=== PATIENT | female | born 1995 | race Caucasian/White ===

== ENCOUNTER → 2018-10-09 13:07 | Outpatient (CLI) | payer OTHER, MEDICAID, SELFPAY ==
--- NOTE | 2018-10-09 13:09 | DI.US.S_ITS ---
PROCEDURE: US OB <= 14 WEEKS FETUS INDICATIONS: DATES OUTSIDE/PRIOR DATING DATA: Last menstrual period (LMP): 07/30/18. LMP-based estimated date of delivery (ALFONSO): 05/06/19, assuming viable gestation. First dating scan (date and location): This study, 10/09/18. Estimated date of delivery (ALFONSO) from first dating scan: demise. TECHNIQUE: Real-time scanning was performed of the fetus and maternal pelvic organs, with image documentation. Endovaginal scanning was also performed to better visualize the fetus and maternal ovaries. COMPARISON: None. FINDINGS: Embryo: The gestational sac is flaccid, the pole measures 7 mm which correlates with a gestational age of 6 weeks 4 days, and no cardiac activity was observed. Measurement variability in dating: +/- 4 weeks by LMP, +/- 7 days by mean sac diameter (use before 6 weeks gestation if crown-rump length not able to be measured), +/- 5 days by crown-rump length (up to 8 weeks 6 days gestation), +/- 7 days by crown-rump length (up to 13 weeks 6 days gestation). Maternal organs: Ovaries normal on the right and not seen on the left due to bowel gas. Limited images through the kidneys demonstrate no hydronephrosis. IMPRESSION: The estimated gestational age based on the pole is 6 weeks 3 days-6 weeks 4 days, and the pole measures 7 mm in dimension. No cardiac activity was identified. The gestational sac is irregular, and demise appears present. Dictated by: Danie Zambrano M.D. on 10/09/2018 at 14:08 Approved by: Danie Zambrano M.D. on 10/09/2018 at 14:12
== END ==
PROVIDERS: Visit Provider Family Medicine
DX: O02.1 Missed abortion (principal)
CPT/HCPCS: 76801; 76817

== ENCOUNTER → 2018-10-10 12:51 | Outpatient (CLI) | payer OTHER, MEDICAID, SELFPAY ==
[2018-10-10 14:47] LABS: HCG Quantitative /Beta subunit 30317 mIU/mL
== END ==
PROVIDERS: Specialist; Visit Provider Obstetrics & Gynecology
DX: O36.80X0 Pregnancy with inconclusive fetal viability, not applicable or unspecified (principal)
CPT/HCPCS: 36415; 84702

== ENCOUNTER → 2018-10-12 09:35 | Outpatient (CLI) | payer OTHER, MEDICAID, SELFPAY ==
[2018-10-12 11:23] LABS: HCG Quantitative /Beta subunit 30544 mIU/mL
== END ==
PROVIDERS: Visit Provider Family Medicine
DX: O36.80X0 Pregnancy with inconclusive fetal viability, not applicable or unspecified (principal)
CPT/HCPCS: 36415; 84702

== ENCOUNTER → 2018-10-29 15:15 | Outpatient (CLI) | payer OTHER, MEDICAID, SELFPAY ==
[2018-10-29 16:58] LABS: HCG Quantitative /Beta subunit 72.14 mIU/mL
== END ==
PROVIDERS: Visit Provider Family Medicine
DX: O03.9 Complete or unspecified spontaneous abortion without complication (principal)
CPT/HCPCS: 36415; 84702

== ENCOUNTER → 2018-11-12 11:40 | Outpatient (CLI) | payer OTHER, MEDICAID, SELFPAY ==
[2018-11-12 13:03] LABS: HCG Quantitative /Beta subunit 5.46 mIU/mL
== END ==
PROVIDERS: Visit Provider Family Medicine
DX: O36.80X0 Pregnancy with inconclusive fetal viability, not applicable or unspecified (principal)
CPT/HCPCS: 36415; 84702

== ENCOUNTER → 2018-12-28 10:08 | Outpatient (CLI) | payer OTHER, MEDICAID, SELFPAY ==
--- NOTE | 2018-12-28 10:09 | DI.US.S_ITS ---
PROCEDURE: US OB <= 14 WEEKS FETUS INDICATIONS: INITIAL DATING OUTSIDE/PRIOR DATING DATA: Last menstrual period (LMP): 10/31/2018. LMP-based estimated date of delivery (ALFONSO): 08/07/2019. First dating scan (date and location): 12/28/2018. Estimated date of delivery (ALFONSO) from first dating scan: 08/06/2019. TECHNIQUE: Real-time scanning was performed of the fetus and maternal pelvic organs, with image documentation. COMPARISON: [facility], , OB <= 14 WEEKS FETUS, 10/09/2018, 13:16. FINDINGS: Embryo: There is a single living intrauterine gestation with an estimated sonographic gestational age of approximately 8 weeks and 4 days by crown-rump length and 9 weeks and 0 days by crown lump length+ gestational sac. The mean sac diameter measured 3.9 cm, correlating with 9 weeks and 2 days. The crown lump length measured 2.0 cm, correlating with approximately 8 weeks and 4 days. heart rate measures approximately 173 beats per minute. A normal yolk sac is visualized. Measurement variability in dating: +/- 4 weeks by LMP, +/- 7 days by mean sac diameter (use before 6 weeks gestation if crown-rump length not able to be measured), +/- 5 days by crown-rump length (up to 8 weeks 6 days gestation), +/- 7 days by crown-rump length (up to 13 weeks 6 days gestation). Maternal organs: Ovaries are normal in appearance bilaterally. Limited images through the kidneys demonstrate no hydronephrosis. IMPRESSION: Single living intrauterine gestation with an estimated sonographic gestational age of approximately 9 weeks and 0 days. Recommend followup imaging with routine second trimester anatomic scanning survey. Dictated by: Josh Hendrix M.D. on 12/28/2018 at 17:10 Approved by: Josh Hendrix M.D. on 12/28/2018 at 17:15
[2018-12-28 11:45] LABS: Add Manual Diff / Slide Review NO; Basophils Absolute Auto 0 /uL (0-100); Basophils Percent Auto 0.4 % (0-2); Eosinophils Absolute Auto 100 /uL (0-450); Eosinophils Percent Auto 2.4 % (2-4); Hematocrit 37.2 % (36-46); Lymphocytes Absolute Auto 1500 /uL (1100-4500); Lymphocytes Percent Auto 25.7 % (25-40); Mean Corpuscular Hemoglobin 33.2 PG (26-34); Monocytes Absolute Auto 500 /uL (0-900); Monocytes Percent Auto 8.4 % (3-14); Neutrophils Absolute Auto 3800 /uL (1500-7000); Neutrophils Percent Auto 63.1 % (50-75); Platelet Count 269 X10^3/uL (150-400); Red Blood Cell Count 3.92 X10^6/uL (4.0-5.2); Red Cell Distribution Width 13.7 % (11.6-14.8)
[2018-12-28 11:48] LABS: Appearance Urine UA SL CLOUDY; Bilirubin Urine UA NEGATIVE (NEGATIVE); Color Urine UA YELLOW; Glucose Urine UA NEGATIVE (Negative); Ketones Urine UA NEGATIVE (NEGATIVE); Leukocyte Esterase Urine UA NEGATIVE (NEGATIVE); Nitrite Urine UA NEGATIVE (Negative); Occult Blood Urine UA NEGATIVE (Negative); Protein Urine UA NEGATIVE (Negative); Urobilinogen Urine UA 0.2 E.U./dL (0.2)
[2018-12-28 12:23] LABS: Hepatitis B Surface Antigen NEGATIVE s/c (NEGATIVE); Rubella Antibody IgG 23.8 IU/mL (>15)
[2018-12-28 12:40] LABS: HIV 1 and 2 Antibody NEGATIVE (NEGATIVE); Hep C Virus Ab w/Reflex Quant NEGATIVE s/c (NEGATIVE)
[2018-12-30 14:26] LABS: RPR Screen Nonreactive (Nonreactive)
== END ==
PROVIDERS: Visit Provider Family Medicine
DX: Z34.01 Encounter for supervision of normal first pregnancy, first trimester (principal); Z3A.09 9 weeks gestation of pregnancy
CPT/HCPCS: 36415; 76801; 80055; 81003; 86703; 86787; 86803; 86850; 86900; 86901; 87077; 87086

== ENCOUNTER → 2019-03-22 14:41 | Outpatient (CLI) | payer OTHER, MEDICAID, SELFPAY ==
--- NOTE | 2019-03-22 14:43 | DI.US.S_ITS ---
PROCEDURE: US OB >= 14 WEEKS FETUS INDICATIONS: ANATOMY OUTSIDE/PRIOR DATING DATA: Last menstrual period (LMP): 10/31/18. LMP-based estimated date of delivery (ALFONSO): 08/07/19. First dating scan (date and location): 12/28/18, [facility]. Estimated date of delivery (ALFONSO) from first dating scan: 08/06/19. TECHNIQUE: Real-time scanning was performed of the fetus, with image documentation and biometric measurements. Endovaginal scanning: Not performed COMPARISON: None. FINDINGS: General: A single living intrauterine gestation is present. Presentation: Vertex. Placenta: Placental position is anterior, without previa. Lower placental edge 2 cm or less from internal cervical os qualifies as low lying placenta. Amniotic fluid index: 18.5 cm, normal range is 5-24 cm. heart rate: 150 beats per minute. Maternal cervical canal: 3.6 cm long. Normal lower limit is 2.5 cm. biometrics: Biparietal diameter: 5.6 cm, 23 weeks, zero days Head circumference: 20.8 cm, 22 weeks, 6 days Abdominal circumference: 15.3 cm, 20 weeks, 4 days Femur length: 3.4 cm, 20 weeks, 5 days Estimated gestational age from initial scan: 20 weeks, 3 days Composite gestational age from present scan: 21 weeks, 6 days Estimated weight and percentile: 384 g, 71st percentile Measurement variability for biometric dating: +/- 7 days from 14 weeks to 15 weeks 6 days gestation, +/- 10 days from 16 weeks to 21 weeks 6 days gestation, +/- 2 weeks from 22 weeks to 27 weeks 6 days gestation, +/- 3 weeks for 28 weeks gestation or later. weight reference: 4500 g or EFW >90/95% is considered macrosomia or large for gestational age. EFW <10% is small for gestational age. EFW 5% or less is considered intra-uterine growth restriction. Anatomic survey: Neuro: The ventricles are markedly dilated measuring up to 16 mm in diameter. The cisterna magna measures 1.8 cm in diameter. The cerebellar hemispheres are not definitely visualized. Face: Nose and lips have a normal appearance. The facial profile is not well characterized. Spine: No evidence for spina bifida. Heart: 4-chambered heart is present, with normal ventricular outflow tracts. Diaphragm: Diaphragm is intact. Stomach: Left-sided stomach is present. Kidneys: No hydronephrosis. Normal is less than 5 mm in 2nd trimester, less than 7 mm in 3rd trimester. Cord: 3-vessel cord has orthotopic insertion. Bladder: Normal in size. Extremities: All 4 extremities identified. IMPRESSION: 1. 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 2. No other anatomic abnormalities. These findings were discussed with Dr. Hoffman at the time of the study and with the patient at the time of the study by the radiologist. Dictated by: Itzel Hernandes M.D. on 03/22/2019 at 15:57 Approved by: Itzel Hernandes M.D. on 03/22/2019 at 16:01
== END ==
PROVIDERS: PCP Family Medicine; Visit Provider Family Medicine
DX: Z36.89 Encounter for other specified antenatal screening (principal); Z3A.21 21 weeks gestation of pregnancy
CPT/HCPCS: 76811

== ENCOUNTER → 2019-10-11 15:54 | Outpatient (CLI) | payer OTHER, MEDICAID, SELFPAY ==
--- NOTE | 2019-10-11 15:55 | DI.RAD.S_ITS ---
PROCEDURE: XR CHEST 2V INDICATIONS: cough TECHNIQUE: 2 views of the chest were acquired. COMPARISON: None. FINDINGS: Surgical changes and devices: None. Lungs and pleura: Lungs are clear. No pleural effusions or pneumothorax. Mediastinum: Mediastinal contours are normal. Heart size is normal. Bones and chest wall: No suspicious bony abnormalities. Soft tissues appear unremarkable. IMPRESSION: Normal for age, source of current cough symptoms is not seen. Dictated by: Danie Zambrano M.D. on 10/11/2019 at 16:22 Approved by: Danie Zambrano M.D. on 10/11/2019 at 16:29
== END ==
PROVIDERS: Family Provider Family Medicine; PCP Family Medicine; Visit Provider Nurse Practitioner
DX: R05 Cough (principal)
CPT/HCPCS: 71046

== ENCOUNTER → 2020-05-24 10:38 | Outpatient (CLI) | payer OTHER, MEDICAID, SELFPAY ==
[2020-05-27 12:12] LABS: COVID19 Sendout Not Detected (Not Detected)
== END ==
PROVIDERS: Family Provider Family Medicine; PCP Family Medicine; Visit Provider Physician Assistant
DX: R05 Cough (principal)
CPT/HCPCS: 87635

== ENCOUNTER → 2020-05-24 10:51 | Outpatient (CLI) | payer OTHER, MEDICAID, SELFPAY ==
--- NOTE | 2020-05-24 10:53 | DI.RAD.S_ITS ---
PROCEDURE: XR CHEST 2V INDICATIONS: shortness of breath TECHNIQUE: 2 views of the chest were acquired. COMPARISON: [facility], , XR CHEST 2V, 10/11/2019, 15:52. FINDINGS: Surgical changes and devices: None. Lungs and pleura: Lungs are clear. No pleural effusions or pneumothorax. Mediastinum: Mediastinal contours are normal. Heart size is normal. Bones and chest wall: No suspicious bony abnormalities. Soft tissues appear unremarkable. IMPRESSION: Negative chest. No acute cardiopulmonary process is evident. Dictated by: Estiven Torres M.D. on 05/24/2020 at 10:06 Approved by: Estiven Torres M.D. on 05/24/2020 at 10:07
== END ==
PROVIDERS: Family Provider Family Medicine; PCP Family Medicine; Referring Provider Physician Assistant; Visit Provider Physician Assistant
DX: R06.02 Shortness of breath (principal); R05 Cough
CPT/HCPCS: 71046; 87635

== ENCOUNTER 2020-11-10 06:24 | Emergency (ER) | payer OTHER, MEDICAID, SELFPAY ==
[2020-11-10 06:43] VITALS: BP 141/83; PULSE 79; RESP 20; TEMP 36.7; O2SAT 92; BMI 27.4
--- NOTE | 2020-11-10 06:48 | DI.RAD.S_ITS ---
PROCEDURE: XR CHEST 2V INDICATIONS: shortness of breath TECHNIQUE: 2 views of the chest were acquired. COMPARISON: [facility], CR, XR CHEST 2V, 05/24/2020, 10:44. FINDINGS: Surgical changes and devices: None. Mild focal opacity seen in the left upper lobe No pleural effusions or pneumothorax. Mediastinum: Mediastinal contours are normal. Heart size is normal. Bones and chest wall: No suspicious bony abnormalities. Soft tissues appear unremarkable. IMPRESSION: Left upper lobe focal opacity suggestive of early pneumonia. Dictated by: Kristopher Portillo M.D. on 11/10/2020 at 8:38 Approved by: Kristopher Portillo M.D. on 11/10/2020 at 8:39
[2020-11-10 07:08] LABS: COVID19 -Nasal RAPID Negative (Negative)
--- NOTE | 2020-11-10 07:10 | ED.SOB ---
HPI - SOB/Dyspnea General Chief Complaint: Shortness of Breath/Dyspnea Stated Complaint: thinks she has bronchitis Time Seen by Provider: 11/10/20 07:00 Source: patient Mode of arrival: Ambulatory Limitations: no limitations History of Present Illness HPI Narrative: Patient is a 25-year-old female who has a history of exercise-induced asthma. She says it has been relatively controlled until this year. She has had issues off and on since but over the last week progressively getting worse. She has been using her albuterol inhaler with spacer along with nebulizer without any relief. She says she gets short of breath with exertion she feels like her chest is tight and she cannot take a deep breath. She has a nonproductive cough she denies any fever or chills. She says she just can not quite breath. MD Complaint: shortness of breath Onset (ago): week(s) Context: occurred during exertion Relieving factors: rest Exacerbating factors: exertion Known history of: asthma Associated symptoms: wheezing Related Data Previous Rx's Medication Instructions Recorded triamcinolone acetonide 0.1 % 1 applictn TOP BID #30 gram 08/28/19 topical cream norgestimate 0.25 mg-ethinyl 1 tab PO DAILY #84 tab 09/13/19 estradiol 35 mcg tablet azithromycin 250 mg tablet See Rx Instructions PO .COMPLEX #6 05/24/20 tab fluticasone propionate 220 2 puff INHALATION BID #12 gram 05/29/20 mcg/actuation HFA aerosol inhaler nebulizer and compressor #1 each 05/29/20 albuterol sulfate 90 mcg/actuation 2 puff INHALATION Q4-6H PRN #8.5 07/16/20 aerosol inhaler gram Nebulizer Canister for medication #1 ea 08/28/20 Nebulizer tubing #1 ea 08/28/20 albuterol sulfate 2.5 mg INHALATION Q6H PRN #90 ml 08/28/20 albuterol sulfate 0.63 mg INHALATION QID PRN #75 ml 11/10/20 albuterol sulfate 2 puff INHALATION Q4-6H PRN #8.5 g 11/10/20 doxycycline hyclate 100 mg PO BID #14 cap 11/10/20 prednisone 40 mg PO DAILY #10 tab 11/10/20 Allergies Allergy/AdvReac Type Severity Reaction Status Date / Time diphenhydramine Allergy Severe rash, Verified 11/10/20 06:49 [From Benadryl] anaphylaxis Review of Systems Review of Systems Narrative: GENERAL: Denies chills, fatigue, malaise, fever, sweats, travel HEENT: Denies sinus pain, ear pain, sore throat, difficulty swallowing, neck pain RESPIRATORY: See HPI CARDIOVASCULAR: Denies chest pain, palpitations, orthopnea, edema GASTROINTESTINAL: Denies nausea, vomiting, abdominal pain, diarrhea, constipation, melena. : Denies dysuria, frequency, incontinence, hematuria, urinary retention, flank pain. MUSCULOSKELETAL: Denies weakness, joint pain, or bony pain SKIN: No rash, no erythema, no pruritus NEUROLOGIC: Denies weakness, dizziness, headache, numbness, change in speech, confusion PSYCHIATRIC: No concerning psychosocial issues. 12 point review of systems is negative except for those stated above and HPI Patient History Medical History Mild intermittent asthma Social History marital status: unmarried,single (engaged) lives independently: Yes education level: high school occupational status: unemployed Smoking Status: Never smoker alcohol intake: former substance use type: former substance user (marijuana) Smoking Status: Never smoker Substance Use Type: marijuana Exam Initial Vital Signs Initial Vital Signs: Vital Signs Temperature 98.1 F 11/10/20 06:43 Pulse Rate 79 11/10/20 06:43 Respiratory Rate 20 11/10/20 06:43 Blood Pressure 141/83 H 11/10/20 06:43 Pulse Oximetry 92 11/10/20 06:43 GENERAL: Well-appearing, well-nourished and in no acute distress. HEENT: Head atraumatic,EOMI, pupils reactive, face symmetric, moist mucous membranes CARDIOVASCULAR: Regular rate and rhythm without murmurs, rubs or gallops. RESPIRATORY: Wheezing bilaterally, speaks in full sentences without difficulty ABDOMEN: Soft, nontender. Normoactive bowel sounds all 4 quadrants. No guarding or rebound. EXTREMITIES: Normal range of motion, no clubbing or edema. Neurovascularly intact NEUROLOGICAL: Alert and oriented x4.Normal gait and speech. SKIN: Warm, dry, no laceration, no petechiae, no rashes or lesions. Course Orders Ordered: ED Orders 11/10/20 06:45 COVID19 Stat 11/10/20 06:48 XR chest 2V Stat Measure peak expiratory flow ONCE RT Consult Eval and Treat Now 11/10/20 07:57 EKG-12 Lead Stat 11/10/20 08:05 Complete Blood Count AUTO DIFF Stat Comprehensive Metabolic Panel Stat NT-proBNP (BNP-Adult 18+) Stat Troponin & CK Cardiac Panel Stat Discontinued Medications Albuterol (Albuterol 2.5 Mg/3 Ml Neb (Adult)) 2.5 mg INH NOW ONE Stop: 11/10/20 07:43 Last Admin: 11/10/20 07:53 Dose: 2.5 mg Documented by: GRICELDA Albuterol (Albuterol 2.5 Mg/3 Ml Neb (Adult)) 2.5 mg INH NOW ONE Stop: 11/10/20 09:04 Last Admin: 11/10/20 09:06 Dose: 2.5 mg Documented by: GRICELDA Albuterol/Ipratropium (Albuterol/Ipratropium 3 Ml Ampul) 3 ml INH NOW ONE Stop: 11/10/20 07:11 Last Admin: 11/10/20 07:16 Dose: 3 ml Documented by: GRICELDA Vital Signs Vital signs: Vital Signs - 8 hr 11/10/20 06:43 11/10/20 07:20 11/10/20 07:57 Temperature 98.1 F Pulse Rate 79 95 H 88 Respiratory Rate 20 20 16 Blood Pressure 141/83 H Pulse Oximetry 92 96 97 11/10/20 09:17 11/10/20 09:28 Temperature Pulse Rate 70 Respiratory Rate 16 Blood Pressure 141/82 H Pulse Oximetry 96 96 MDM - SOB/Dyspnea Lab Data Attestation: I reviewed the patient's lab results. Result diagrams: 11/10/20 08:05 11/10/20 08:05 Labs: Lab Results 11/10/20 11/10/20 11/10/20 Range/Units 06:45 08:05 08:05 WBC 11.1 H (4.5-11.0) X10^3/uL RBC 4.28 (4.0-5.2) X10^6/uL Hgb 13.7 (12.0-16.0) g/dL Hct 39.9 (36-46) % MCV 93.2 (80-100) fL MCH 32.1 (26-34) PG MCHC 34.5 (30-36) % RDW 14.1 (11.6-14.8) % Plt Count 292 (150-400) X10^3/uL Neut % (Auto) 58.1 (50-75) % Lymph % (Auto) 15.0 L (25-40) % [place] % (Auto) 5.3 (3-14) % Eos % (Auto) 20.9 H (2-4) % Baso % (Auto) 0.7 (0-2) % Neut # (Auto) 6400 (7066-2862) /uL Lymph # (Auto) 1700 (8540-4155) /uL [place] # (Auto) 600 (0-900) /uL Eos # (Auto) 2300 H (0-450) /uL Baso # (Auto) 100 (0-100) /uL Sodium 139 (137-145) mmol/L Potassium 3.7 (3.4-5.1) mmol/L Chloride 108 H (98-107) mmol/L Carbon Dioxide 22 (22-32) mmol/L BUN 7 (7-17) mg/dL Creatinine 0.65 (0.52-1.04) mg/dL Estimated GFR > 60.0 (>60) mL/min BUN/Creatinine Ratio 10.8 (6-22) Glucose 106 H (70-100) mg/dL Lactate Calcium 9.6 (8.4-10.2) mg/dL Total Bilirubin 0.8 (0.2-1.3) mg/dL AST 20 (14-36) IU/L ALT 11 (<35) IU/L Alkaline Phosphatase 73 (38-126) U/L Total Creatine Kinase (30-135) U/L CK-MB (CK-2) CK-MB (CK-2) Rel Index Troponin I (0.01-0.034) ng/mL NT-Pro-B Natriuret Pep (<125) pg/mL Total Protein 7.6 (6.3-8.2) g/dL Albumin 4.3 (3.5-5.0) g/dL Globulin 3.3 (1.7-4.1) g/dL Albumin/Globulin Ratio 1.3 (1.0-2.8) COVID-19 PCR Negative (Negative) 11/10/20 11/10/20 11/10/20 Range/Units 08:05 08:05 08:05 WBC (4.5-11.0) X10^3/uL RBC (4.0-5.2) X10^6/uL Hgb (12.0-16.0) g/dL Hct (36-46) % MCV (80-100) fL MCH (26-34) PG MCHC (30-36) % RDW (11.6-14.8) % Plt Count (150-400) X10^3/uL Neut % (Auto) (50-75) % Lymph % (Auto) (25-40) % [place] % (Auto) (3-14) % Eos % (Auto) (2-4) % Baso % (Auto) (0-2) % Neut # (Auto) (2030-5649) /uL Lymph # (Auto) (3055-5408) /uL [place] # (Auto) (0-900) /uL Eos # (Auto) (0-450) /uL Baso # (Auto) (0-100) /uL Sodium (137-145) mmol/L Potassium (3.4-5.1) mmol/L Chloride (98-107) mmol/L Carbon Dioxide (22-32) mmol/L BUN (7-17) mg/dL Creatinine (0.52-1.04) mg/dL Estimated GFR (>60) mL/min BUN/Creatinine Ratio (6-22) Glucose (70-100) mg/dL Lactate Cancelled Calcium (8.4-10.2) mg/dL Total Bilirubin (0.2-1.3) mg/dL AST (14-36) IU/L ALT (<35) IU/L Alkaline Phosphatase (38-126) U/L Total Creatine Kinase 54 (30-135) U/L CK-MB (CK-2) TNP CK-MB (CK-2) Rel Index TNP Troponin I < 0.012 (0.01-0.034) ng/mL NT-Pro-B Natriuret Pep 28 (<125) pg/mL Total Protein (6.3-8.2) g/dL Albumin (3.5-5.0) g/dL Globulin (1.7-4.1) g/dL Albumin/Globulin Ratio (1.0-2.8) COVID-19 PCR (Negative) Imaging Data Chest x-ray: Radiologist's Impression: PROCEDURE: XR CHEST 2V INDICATIONS: shortness of breath TECHNIQUE: 2 views of the chest were acquired. COMPARISON: [facility], CR, XR CHEST 2V, 05/24/2020, 10:44. FINDINGS: Surgical changes and devices: None. Mild focal opacity seen in the left upper lobe No pleural effusions or pneumothorax. Mediastinum: Mediastinal contours are normal. Heart size is normal. Bones and chest wall: No suspicious bony abnormalities. Soft tissues appear unremarkable. IMPRESSION: Left upper lobe focal opacity suggestive of early pneumonia. Dictated by: Kristopher Portillo M.D. on 11/10/2020 at 8:38 ECG Data Attestation: I personally reviewed and interpreted this ECG as follows: Prior ECG tracings: not available for review Interpretation: Normal sinus rhythm rate 74 p.r. interval 112 QRS 98 QTC 421 T-wave inversion noted in lead 3 and V2, no ST elevation or depression appreciated MDM Narrative Medical decision making narrative: Patient had no relief after DuoNeb treatment. She was given a 2nd albuterol nebulizer which seemed to help a little bit more. Blood work then ordered chest x-ray revealed left upper lobe pneumonia. sHe overall appears well no signs of sepsis or SIRS criteria. She is started on prednisone albuterol and doxycycline. Discharge Plan Departure Patient Disposition: Home Clinical Impression: Pneumonia Qualifiers: Pneumonia type: due to unspecified organism Laterality: left Lung location: upper lobe of lung Qualified Code(s): J18.9 - Pneumonia, unspecified organism Instructions: Atypical Pneumonia Activity Restrictions/Additional Instructions: *You have been diagnosed with pneumonia *What to do: Rest, increase fluids COVID is negative *Continue to take medications as directed-->[facility] [place] Doxycycline 100 mg twice a day for 7 days Albuterol either inhaler or nebulizer every 4 hours if needed for cough or shortness of breath. Prednisone 40 mg once a day for 5 days start today *Follow up with your primary care provider in 2-3 days *Return to ER if you should have increasing shortness of breath, chest pain fever or any new, worsening or concerning symptoms Prescriptions: New doxycycline hyclate 100 mg capsule 100 mg PO BID Qty: 14 RF: 0 prednisone 20 mg tablet 40 mg PO DAILY Qty: 10 RF: 0 albuterol sulfate 0.63 mg/3 mL solution for nebulization 0.63 mg inhalation QID PRN (Reason: shortness of breath or wheezing) Qty: 75 RF: 0 albuterol sulfate 90 mcg/actuation HFA aerosol inhaler 2 puff inhalation Q4-6H PRN (Reason: shortness of breath or wheezing) Qty: 8.5 RF: 0 No Action norgestimate-ethinyl estradiol [Sprintec (28)] 0.25-35 mg-mcg tablet 1 tab PO DAILY Qty: 84 RF: 3 Flovent HFA 220 mcg/actuation HFA aerosol inhaler 2 puff INHALATION BID Qty: 12 RF: 1 (DME) Portable Nebulizer System Device See Rx Instructions .ROUTE .MEDSUPPLY Qty: 1 RF: 0 azithromycin 250 mg tablet See Rx Instructions PO .COMPLEX Qty: 6 RF: 0 albuterol sulfate 90 mcg/actuation HFA aerosol inhaler 2 puff INHALATION Q4-6H PRN (Reason: shortness of breath or wheezing) Qty: 8.5 RF: 2 albuterol sulfate 2.5 mg /3 mL (0.083 %) solution for nebulization 2.5 mg INHALATION Q6H PRN (Reason: shortness of breath or wheezing) Qty: 90 RF: 0 (DME) Nebulizer tubing Qty: 1 RF: 0 (DME) Nebulizer Canister for medication Qty: 1 RF: 0 triamcinolone acetonide 0.1 % cream 1 applictn TOP BID Qty: 30 RF: 0 Referrals: Tatianna Hoffman DO [Primary Care Provider] -
[2020-11-10] MEDS: ALBUTEROL/IPRATROPIUM 3 ML AMPUL INH (07:16)
[2020-11-10 07:20] VITALS: PULSE 95; RESP 20; O2SAT 96
[2020-11-10] MEDS: ALBUTEROL 2.5 MG/3 ML NEB (ADULT) INH ×2 (07:53→09:06)
[2020-11-10 07:57] VITALS: PULSE 88; RESP 16; O2SAT 97
[2020-11-10 08:27] LABS: Add Manual Diff / Slide Review NO; Basophils Absolute Auto 100 /uL (0-100); Basophils Percent Auto 0.7 % (0-2); Eosinophils Absolute Auto 2300 /uL (0-450); Eosinophils Percent Auto 20.9 % (2-4); Hematocrit 39.9 % (36-46); Hemoglobin 13.7 g/dL (12.0-16.0); Lymphocytes Absolute Auto 1700 /uL (1100-4500); Mean Corpuscular HGB Conc 34.5 % (30-36); Mean Corpuscular Hemoglobin 32.1 PG (26-34); Mean Corpuscular Volume 93.2 fL (80-100); Monocytes Absolute Auto 600 /uL (0-900); Monocytes Percent Auto 5.3 % (3-14); Neutrophils Absolute Auto 6400 /uL (1500-7000); Neutrophils Percent Auto 58.1 % (50-75); Platelet Count 292 X10^3/uL (150-400); Red Blood Cell Count 4.28 X10^6/uL (4.0-5.2); Red Cell Distribution Width 14.1 % (11.6-14.8); White Blood Cell Count 11.1 X10^3/uL (4.5-11.0)
[2020-11-10 08:35] LABS: Creatine Kinase 54 U/L (30-135)
[2020-11-10 08:45] LABS: NT-proBNP (BNP-Adult 18+) 28 pg/mL (<125)
[2020-11-10 08:48] LABS: Troponin I < 0.012 ng/mL (0.01-0.034)
[2020-11-10 08:53] LABS: Alanine Aminotransferase 11 IU/L (<35); Albumin 4.3 g/dL (3.5-5.0); Albumin Globulin Ratio 1.3 (1.0-2.8); Alkaline Phosphatase 73 U/L (38-126); Aspartate Aminotransferase 20 IU/L (14-36); BUN Creatinine Ratio 10.8 (6-22); Bilirubin Total 0.8 mg/dL (0.2-1.3); Blood Urea Nitrogen 7 mg/dL (7-17); Calcium 9.6 mg/dL (8.4-10.2); Carbon Dioxide 22 mmol/L (22-32); Chloride 108 mmol/L (98-107); Estimated Glomerular Filt Rate > 60.0 mL/min (>60); Globulin 3.3 g/dL (1.7-4.1); Glucose 106 mg/dL (70-100); HEMOLYSIS 16 (0-50); Potassium 3.7 mmol/L (3.4-5.1); Sodium 139 mmol/L (137-145); Total Protein 7.6 g/dL (6.3-8.2)
[2020-11-10 09:17] VITALS: RESP 16; O2SAT 96
[2020-11-10 09:28] VITALS: BP 141/82; PULSE 70; O2SAT 96
== END 2020-11-10 09:28 | disposition home or self-care (01) ==
PROVIDERS: Emergency Medicine; Emergency Provider Emergency Medicine; Family Provider Family Medicine; PCP Family Medicine
DX: J18.9 Pneumonia, unspecified organism (principal); R05 Cough; Z20.828 Contact with and (suspected) exposure to other viral communicable diseases
CPT/HCPCS: 36415; 71046; 80053; 82550; 83880; 84484; 85025; 87635; 93005; 94150; 94640; 99282; 99284; J7613

== ENCOUNTER → 2021-01-18 07:43 | Outpatient (CLI) | payer OTHER, MEDICAID, SELFPAY ==
--- NOTE | 2021-01-18 07:45 | DI.RAD.S_ITS ---
PROCEDURE: XR CHEST 2V INDICATIONS: cough, h/o pneumonia, r/o pneumonia TECHNIQUE: 2 views of the chest were acquired. COMPARISON: [facility], CR, XR CHEST 2V, 11/10/2020, 7:16. FINDINGS: Surgical changes and devices: None. Lungs and pleura: Lungs are clear. No pleural effusions or pneumothorax. Mediastinum: Mediastinal contours are normal. Heart size is normal. Bones and chest wall: No suspicious bony abnormalities. Soft tissues appear unremarkable. IMPRESSION: No acute cardiopulmonary pathology. Dictated by: Mitesh Bonner M.D. on 01/18/2021 at 8:18 Approved by: Mitesh Bonner M.D. on 01/18/2021 at 8:18
== END ==
PROVIDERS: Family Provider Family Medicine; PCP Family Medicine; Referring Provider Physician Assistant; Visit Provider Physician Assistant
DX: J40 Bronchitis, not specified as acute or chronic (principal); R05 Cough
CPT/HCPCS: 71046

== ENCOUNTER → 2021-06-16 13:08 | Outpatient (CLI) | payer OTHER, MEDICAID, SELFPAY ==
[2021-06-16 15:30] LABS: HCG Quantitative /Beta subunit 78221 mIU/mL
== END ==
PROVIDERS: Family Provider Family Medicine; PCP Family Medicine; Referring Provider Family Medicine; Visit Provider Family Medicine
DX: Z34.81 Encounter for supervision of other normal pregnancy, first trimester (principal)
CPT/HCPCS: 36415; 84702

== ENCOUNTER → 2021-06-18 12:56 | Outpatient (CLI) | payer OTHER, MEDICAID, SELFPAY ==
[2021-06-18 15:08] LABS: HCG Quantitative /Beta subunit 75821 mIU/mL
== END ==
PROVIDERS: Family Provider Family Medicine; PCP Family Medicine; Referring Provider Family Medicine; Visit Provider Family Medicine
DX: Z34.81 Encounter for supervision of other normal pregnancy, first trimester (principal)
CPT/HCPCS: 36415; 84702

== ENCOUNTER → 2021-06-21 14:58 | Outpatient (CLI) | payer OTHER, MEDICAID, SELFPAY ==
[2021-06-21 16:31] LABS: HCG Quantitative /Beta subunit 71738 mIU/mL
== END ==
PROVIDERS: Family Provider Family Medicine; PCP Family Medicine; Referring Provider Family Medicine; Visit Provider Family Medicine
DX: Z34.90 Encounter for supervision of normal pregnancy, unspecified, unspecified trimester (principal)
CPT/HCPCS: 36415; 84702

== ENCOUNTER → 2021-06-22 09:03 | Outpatient (CLI) | payer OTHER, MEDICAID, SELFPAY ==
--- NOTE | 2021-06-22 09:04 | DI.US.S_ITS ---
PROCEDURE: US OB <= 14 WEEKS FETUS INDICATIONS: DECREASING HUMAN CHORIONIC GONADOTROPIN OUTSIDE/PRIOR DATING DATA: Last menstrual period (LMP): Not known LMP-based estimated date of delivery (ALFONSO): Not applicable First dating scan (date and location): June 22, 2021 Estimated date of delivery (ALFONSO) from first dating scan: January 16, 2022 TECHNIQUE: Real-time scanning was performed of the fetus and maternal pelvic organs, with image documentation. Endovaginal scanning was also performed to better visualize the fetus and maternal ovaries. COMPARISON: None. FINDINGS: Embryo: Single living intrauterine identified. Yolk sac identified. pole identified. [place]-rump length measures 3.3 centimeters corresponding to ultrasound estimated gestational age of 10 weeks 2 days Heart rate: 168 beats per minute Measurement variability in dating: +/- 4 weeks by LMP, +/- 7 days by mean sac diameter (use before 6 weeks gestation if crown-rump length not able to be measured), +/- 5 days by crown-rump length (up to 8 weeks 6 days gestation), +/- 7 days by crown-rump length (up to 13 weeks 6 days gestation). Maternal organs: Right ovary is sonographically normal. Left ovary is not visualized and cannot be evaluated. IMPRESSION: Single living intrauterine with ultrasound estimated gestational age of 10 weeks 2 days corresponding to ultrasound ALFONSO of January 16, 2022. Dictated by: Angie Patterson MD, PhD on 06/22/2021 at 10:00 Approved by: Angie Patterson MD, PhD on 06/22/2021 at 10:08
== END ==
PROVIDERS: Family Provider Family Medicine; PCP Family Medicine; Referring Provider Family Medicine; Visit Provider Family Medicine
DX: Z34.91 Encounter for supervision of normal pregnancy, unspecified, first trimester (principal); Z3A.10 10 weeks gestation of pregnancy
CPT/HCPCS: 76801; 76817

== ENCOUNTER → 2021-07-01 16:41 | Outpatient (CLI) | payer OTHER, MEDICAID, SELFPAY ==
[2021-07-01 17:12] LABS: Add Manual Diff / Slide Review NO; Basophils Absolute Auto 0 /uL (0-100); Basophils Percent Auto 0.7 % (0-2); Eosinophils Absolute Auto 300 /uL (0-450); Eosinophils Percent Auto 5.5 % (2-4); Hematocrit 34.2 % (36-46); Hemoglobin 11.9 g/dL (12.0-16.0); Lymphocytes Absolute Auto 1300 /uL (1100-4500); Lymphocytes Percent Auto 22.7 % (25-40); Mean Corpuscular HGB Conc 34.8 % (30-36); Mean Corpuscular Volume 94.9 fL (80-100); Monocytes Absolute Auto 300 /uL (0-900); Monocytes Percent Auto 6.2 % (3-14); Neutrophils Absolute Auto 3600 /uL (1500-7000); Neutrophils Percent Auto 64.9 % (50-75); Platelet Count 291 X10^3/uL (150-400); Red Blood Cell Count 3.61 X10^6/uL (4.0-5.2); Red Cell Distribution Width 14.6 % (11.6-14.8); White Blood Cell Count 5.6 X10^3/uL (4.5-11.0)
[2021-07-01 17:55] LABS: Appearance Urine UA CLEAR; Bilirubin Urine UA NEGATIVE (NEGATIVE); Color Urine UA YELLOW; Glucose Urine UA NEGATIVE (Negative); Ketones Urine UA NEGATIVE (NEGATIVE); Leukocyte Esterase Urine UA 1+ (NEGATIVE); Nitrite Urine UA NEGATIVE (Negative); Occult Blood Urine UA NEGATIVE (Negative); Protein Urine UA NEGATIVE (Negative); Urobilinogen Urine UA 0.2 E.U./dL (0.2)
[2021-07-01 17:58] LABS: RBC Urine None Seen (0-5/HPF)
[2021-07-01 18:10] LABS: Amorphous Sediment Urine 1+; Bacteria Urine Moderate (10-30); Squamous Epithelial Cell Urine 1-5 /HPF (0-5/HPF); WBC Urine 5-10/HPF (0-5/HPF)
[2021-07-01 18:22] LABS: HIV 1 & 2 Ab/Ag 4th Gen Combo NEGATIVE (NEGATIVE); Hep C Virus Ab w/Reflex Quant NEGATIVE s/c (NEGATIVE); Hepatitis B Surface Antigen NEGATIVE s/c (NEGATIVE); Rubella Antibody IgG 14.3 IU/mL (>15)
[2021-07-02 07:09] LABS: RPR Screen Non Reactive (Non Reactive)
[2021-07-02 08:09] LABS: Varicella IgG Antibody 535 index (Immune >165)
== END ==
PROVIDERS: Family Provider Family Medicine; PCP Family Medicine; Referring Provider Family Medicine; Visit Provider Family Medicine
DX: Z34.81 Encounter for supervision of other normal pregnancy, first trimester (principal)
CPT/HCPCS: 36415; 80055; 81003; 81015; 86787; 86803; 86850; 86900; 86901; 87086; 87389

== ENCOUNTER → 2021-07-16 13:39 | Outpatient (CLI) | payer OTHER, MEDICAID, SELFPAY ==
[2021-07-17 14:05] LABS: SARS CoV19 IgG Negative (Negative)
== END ==
PROVIDERS: Family Provider Family Medicine; PCP Family Medicine; Referring Provider Family Medicine; Visit Provider Family Medicine
DX: B34.9 Viral infection, unspecified (principal)
CPT/HCPCS: 36415; 86769

== ENCOUNTER → 2021-10-20 10:48 | Outpatient (CLI) | payer OTHER, MEDICAID, SELFPAY ==
[2021-10-20 13:10] LABS: Hematocrit 30.5 % (36-46); Hemoglobin 10.7 g/dL (12.0-16.0)
[2021-10-20 14:34] LABS: GTT (PREG) 1 Hour PP 50gm Dose 150 mg/dL (76-139)
== END ==
PROVIDERS: Family Provider Family Medicine; PCP Family Medicine; Referring Provider Family Medicine; Visit Provider Family Medicine
DX: Z3A.26 26 weeks gestation of pregnancy (principal)
CPT/HCPCS: 36415; 82950; 85014; 85018

== ENCOUNTER → 2021-10-25 10:39 | Outpatient (CLI) | payer OTHER, MEDICAID, SELFPAY ==
[2021-10-25 13:57] LABS: Glucose 1 Hour Gest 194 mg/dL (76-180)
[2021-10-25 14:55] LABS: Glucose Tol Interp,Gestational INTERPRETATION
[2021-10-25 15:22] LABS: Glucose Fasting Gestational 81 mg/dL (76-95)
[2021-10-25 16:33] LABS: Glucose 3 Hour Gest 110 mg/dL (76-140)
[2021-10-25 16:33] LABS: Glucose 2 Hour Gest 152 mg/dL (76-155)
== END ==
PROVIDERS: Family Provider Family Medicine; PCP Family Medicine; Referring Provider Family Medicine; Visit Provider Family Medicine
DX: Z34.90 Encounter for supervision of normal pregnancy, unspecified, unspecified trimester (principal); R73.09 Other abnormal glucose
CPT/HCPCS: 36415; 82951; 82952

== ENCOUNTER → 2021-12-20 13:42 | Outpatient (CLI) | payer OTHER, MEDICAID, SELFPAY ==
[2021-12-21 10:53] LABS: Strep Grp B PCR POS for Grp B Strep
== END ==
PROVIDERS: Family Provider Family Medicine; PCP Family Medicine; Visit Provider Family Medicine
DX: Z36.85 Encounter for antenatal screening for Streptococcus B (principal); Z3A.36 36 weeks gestation of pregnancy
CPT/HCPCS: 87653

== ENCOUNTER 2022-01-17 14:19 | Observation (INO) | payer OTHER, MEDICAID, SELFPAY ==
--- NOTE | 2022-01-17 15:31 | PM.OBTRLD ---
Visit Information Visit Information Date of evaluation: 01/17/22 Primary OB Provider: Tatianna Hoffman Reason for Evaluation: Yes non-stress test non-stress test reason: hypertension/pre-eclampsia Comments/Additional reasons for admission: Patient sent to the center due to blood pressure elevation x2. Denies headache, vision changes, right upper quadrant pain. Edema has been present for weeks and unchanged. Denies leaking or bleeding and reports good movement. She is scheduled for induction tonight. Vital Signs Vital Signs: Temperature 36.6? blood pressure 116/70 heart rate 66 PFSH Medical History Allergic rhinitis due to animal dander Bronchitis (~2017) Depression (~08/2019) Mild intermittent asthma (~2005) [place]-Schlatter's disease of right lower extremity (~2005) Patella-femoral syndrome (~2006) Prior with demise (~04/17/19) SAB (spontaneous ) (~10/09/18) Surgical History [place] teeth extracted (~2011) Family History Father History of ETOH abuse Mother Cleft palate Grandfather Alzheimer disease Stroke Grandmother No problems noted. 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 ) second hand exposure: No alcohol intake: former (Pre-: occasional / social.) substance use type: does not use and marijuana (Use X 4 years, 'dab smoker' so it is more concentrated. Last time was last week, quitting now. ) during the past year weight has: remained stable well-balanced diet: daily or most days daily servings fruits/ve-4 (2) caffeine: No Type(s) of exercise: walking and normal ROM and activity frequency: other (2-3 walks a week.) duration: 15-30 minutes/day Evaluation Evaluation Baseline heart rate: 120 Variability: Moderate (11-25) monitor accelerations: Present Monitor Decelerations: Absent Category of Tracing: Reactive Diagnosis, Plan/Disposition Final Diagnosis (1) 40 weeks gestation of : Status: Acute Plan/Disposition Plan: 26-year-old at 40 weeks and 1 day. Concern for hypertension in clinic however all center blood pressure is normal. She is asymptomatic. NST reactive. She is scheduled for induction tonight for postdates. OB Disposition: home
== END 2022-01-17 15:40 | disposition home or self-care (01) ==
PROVIDERS: Admitting Provider Family Medicine; Family Provider Family Medicine; PCP Family Medicine; Referring Provider Family Medicine; Visit Provider Family Medicine
DX: O48.0 Post-term pregnancy (principal); O26.893 Other specified pregnancy related conditions, third trimester; R03.0 Elevated blood-pressure reading, without diagnosis of hypertension; Z3A.40 40 weeks gestation of pregnancy
CPT/HCPCS: 59025; G0378; G0379

== ENCOUNTER 2022-01-17 21:11 | Inpatient (IN) | payer OTHER, MEDICAID, SELFPAY ==
[2022-01-18] MEDS: miSOPROStoL 25 MCG TABLET VAG (00:32)
[2022-01-18 00:33] VITALS: BP 136/78
[2022-01-18 01:34] LABS: Add Manual Diff / Slide Review NO; Basophils Absolute Auto 0 /uL (0-100); Basophils Percent Auto 0.2 % (0-2); Eosinophils Absolute Auto 200 /uL (0-450); Eosinophils Percent Auto 2.2 % (2-4); Hematocrit 32.1 % (36-46); Hemoglobin 10.7 g/dL (12.0-16.0); Lymphocytes Absolute Auto 2100 /uL (1100-4500); Lymphocytes Percent Auto 27.7 % (25-40); Mean Corpuscular HGB Conc 33.4 % (30-36); Mean Corpuscular Hemoglobin 33.5 PG (26-34); Mean Corpuscular Volume 100.4 fL (80-100); Monocytes Absolute Auto 600 /uL (0-900); Monocytes Percent Auto 8.3 % (3-14); Neutrophils Absolute Auto 4700 /uL (1500-7000); Neutrophils Percent Auto 61.6 % (50-75); Platelet Count 237 X10^3/uL (150-400); Red Blood Cell Count 3.19 X10^6/uL (4.0-5.2); Red Cell Distribution Width 15.5 % (11.6-14.8); White Blood Cell Count 7.6 X10^3/uL (4.5-11.0)
[2022-01-18 01:47] LABS: COVID19 -Nasal RAPID Negative (Negative)
[2022-01-18] MEDS: CALCIUM CARBONATE 500 MG TAB 1000 MG PO (02:22)
[2022-01-18] MEDS: LACTATED RINGERS 1,000 ML 100 ML IV ×2 (04:19→12:11)
[2022-01-18] MEDS: ONDANSETRON 4 MG/2 ML INJ IV (06:25)
--- NOTE | 2022-01-18 06:42 | P.HPOB_ITS ---
OB HPI Date/Time Date of admission: 01/17/22 Date Patient Seen: 01/18/22 Time Patient Seen: 07:20 History of Present Condition Chief complaint: ALFONSO Calculator Estimated Delivery Date Method Current WG Current Estimate 01/16/22 Ultrasound #1 40w 2d Other Estimates 01/10/22 LMP (Uncertain) 41w 1d : 3 Para: 0 Narrative: 26-year-old at 40 weeks and 2 days. She presented last night for cervical ripening with Cytotec. After 1 dose contractions became regular and painful and she is requesting an epidural this morning. complicated by excessive weight gain. She failed 1 hour GTT but passed the 3 hour GTT. Last estimated weight 84th percentile at 36 weeks. She has a history of termination at 24 weeks at the [facility] for a fetus with multiple anomalies. 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 This she was seen and evaluated by maternal medicine. First and second trimester screens were negative. She also underwent echocardiogram due to family history of a sister with an ASD. echo was normal x2. History is also significant for isolated cleft palate in her mother. care: good care, initiated at week # (11), number of visits (12) and pounds weight gain (58) Dating criteria OB: based on 1st trimester US only Ultrasounds: normal 1st trimester US and normal mid trimester US Obstetrical complications: none Medical complications OB: none Indications Indication for induction OB: other (Suspected macrosomia) and post dates Preadmission Labs Last OB Lab Results: Blood Type O Positive 01/17/22 23:00 01/17/22 Antibody Screen Negative 01/17/22 23:00 01/17/22 Hematocrit 32.1 % (36-46) L 01/17/22 23:00 01/17/22 Hemoglobin 10.7 g/dL (12.0-16.0) L 01/17/22 23:00 01/17/22 Hepatitis B Surface Antigen Negative s/c (NEGATIVE) 07/01/21 16:45 07/01/21 Hepatitis C Antibody Negative s/c (NEGATIVE) 07/01/21 16:45 07/01/21 Rubella Antibody 14.3 IU/mL (>15) L 07/01/21 16:45 07/01/21 Varicella-Zoster IgG Antibody 535 index (Immune >165) 07/01/21 16:45 07/01/21 Glucose 1 Hour 150 mg/dL (76-139) H 10/20/21 12:32 10/20/21 Group B Streptococcus (PCR) Pos for grp b strep H 12/20/21 13:42 12/20/21 Glucose Tolerance Testing: Fasting (81), 1 hr (194), 2 hr (152) and 3 hr (110) -: Chlamydia screen: negative, Gonorrhea screen: negative and Urine: negative -: PAP smear: Normal Genetic Screens: Quad screen: Normal, Integrated screen: Normal and Sequential screen: Normal External Labs -: Urine: negative Prior (ies) Past Pregnancies Del. Date GA/Weeks Labor Lgth Wt Sex Route Outcome Anesthesia Place Delv Breastfeed Preg Comp Name 10/09/18 6 spontaneous WA spontaneous 04/17/19 24 Male vaginal epidural U[facility] Delivery Date: 10/09/18 Last Updated by: Donna Cortés R.N. *Patient should have been 10 wga by LMP. Delivery Date: 04/17/19 Last Updated by: Donna Cortés R.N. *Induction of labor for termination of at 24 weeks of a fetus with multiple intracranial anomalies as well as heart defects at the [facility]. Evaluation Evaluation Baseline heart rate: 120 Variability: Moderate (11-25) monitor accelerations: Present Monitor Decelerations: Absent Contraction Frequency (minutes): 2 Category of Tracing: Reactive Status: Category l Dilation (cm): 4 Effacement (%): 80 Dilation: 3-4 cm Effacement: >/=80% station: -2 Position of cervix: mid Consistency: soft Ware score: 9 PFSH Medical History Allergic rhinitis due to animal dander Bronchitis (~2017) Depression (~08/2019) Mild intermittent asthma (~2005) [place]-Schlatter's disease of right lower extremity (~2005) Patella-femoral syndrome (~2006) Prior with demise (~04/17/19) SAB (spontaneous ) (~10/09/18) Surgical History [place] teeth extracted (~2011) Family History Father History of ETOH abuse Mother Cleft palate Grandfather Alzheimer disease Stroke Grandmother No problems noted. 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 ) second hand exposure: No alcohol intake: former (Pre-: occasional / social.) substance use type: does not use and marijuana (Use X 4 years, 'dab smoker' so it is more concentrated. Last time was last week, quitting now. ) during the past year weight has: remained stable well-balanced diet: daily or most days daily servings fruits/ve-4 (2) caffeine: No Type(s) of exercise: walking and normal ROM and activity frequency: other (2-3 walks a week.) duration: 15-30 minutes/day Meds Home Medications and Allergies Home Medications Medication Instructions Recorded Confirmed Type nebulizer and compressor (Portable #1 each 05/29/20 12/27/21 Rx Nebulizer System) Nebulizer Canister for medication #1 ea 08/28/20 12/27/21 Rx Nebulizer tubing #1 ea 08/28/20 12/27/21 Rx albuterol sulfate 2.5 mg (3 mL) INHALATION Q6H PRN 08/28/20 12/27/21 Rx #90 ml cetirizine 10 mg capsule (Zyrtec) 10 mg PO DAILY PRN 07/01/21 12/27/21 History prenat.vits,ynes,wpx-iynw-wgetd 1 tab PO DAILY 07/01/21 12/27/21 History albuterol sulfate 90 mcg/actuation See Rx Instructions .ROUTE 08/20/21 12/27/21 Rx aerosol inhaler .COMPLEX #17 g triamcinolone acetonide 0.1 % 1 applic TOP BID #30 gram 12/20/21 12/27/21 Rx topical cream Allergies Allergy/AdvReac Type Severity Reaction Status Date / Time diphenhydramine Allergy Severe rash, Verified 07/01/21 16:03 [From Benadryl] anaphylaxis animal dander Allergy Intermediate Cats and Verified 07/01/21 16:03 Dogs peanut Allergy Mild Slight Verified 07/01/21 16:03 rash, throat tightening Review of Systems Review of Systems ROS: Yes All systems reviewed with the patient and are negative except as otherwise documented OB Exam Narrative Exam Narrative: Temperature 36.6? blood pressure 148/66 heart rate 50 HENMT Head: normal to inspection Mouth: oral mucosae normal Eyes General: appearance normal, both eyes and all related structures Resp Effort & Inspection: normal respiratory effort Auscultation: clear to auscultation bilaterally Cardio Rate: regular rate Rhythm: regular rhythm Heart Sounds: S1 normal and S2 normal Extremities Lower extremity: Yes edema Laterality: bilateral edema degree: 2+ External Female Exam: Yes normal external appearance Presentation: vertex Estimated Weight (lbs): 8 Objective Labs Result Diagrams: 01/17/22 23:00 Labs: Laboratory Results - last 24 hr 01/17/22 01/17/22 01/18/22 23:00 23:00 00:55 WBC 7.6 RBC 3.19 L Hgb 10.7 L Hct 32.1 L MCV 100.4 H MCH 33.5 MCHC 33.4 RDW 15.5 H Plt Count 237 Neut % (Auto) 61.6 Lymph % (Auto) 27.7 Coal % (Auto) 8.3 Eos % (Auto) 2.2 Baso % (Auto) 0.2 Neut # (Auto) 4700 Lymph # (Auto) 2100 Coal # (Auto) 600 Eos # (Auto) 200 Baso # (Auto) 0 SARS-CoV-2 (PCR) Negative Blood Type O Positive Antibody Screen Negative Assessment and Plan Assessment and Plan Assessment and Plan narrative: 26-year-old at 40 weeks and 2 days here for elective induction for suspected macrosomia. 1 hour GTT was abnormal however she passed the 3 hour GTT. Weight gain of 58 lb this . She presented for Cytotec for cervical ripening overnight and progressed into labor spontaneously after 1 dose. This morning Ware score is 9 and she is requesting an epidural. Plan Epidural now Begin GBS prophylaxis with penicillin Expectant management, anticipate
[2022-01-18] MEDS: METOCLOPRAMIDE 10 MG/2 ML INJ IV (07:38)
[2022-01-18] MEDS: PENICILLIN G POTASSIUM 5,000,000 UNIT in DEXTROSE 5% IN WATER 250 ML IV (07:41)
[2022-01-18] MEDS: OXYTOCIN PREMIX 30 UNIT/500 ML PLAST..BAG IV (09:16)
[2022-01-18] MEDS: PENICILLIN G POTASSIUM 3,000,000 UNIT/50 ML FROZ.PIGGY 100 UNIT IV ×2 (11:03→16:01)
--- NOTE | 2022-01-18 13:07 | PM.OBPNLAB ---
Date/Time Date Patient Seen: 01/18/22 Time Patient Seen: 12:30 Pain Control Pain control: tolerating well and epidural Comments: Feeling pelvic pressures and strong urge to push with contractions. Pelvic Exam Dilation (cm): 10 Effacement (%): 100 station: 0 Amniotic membrane status: Ruptured (clear) Contractions Contraction frequency (min): 2 Status status: Category l Heart Rate Baseline: 130 Monitor Accelerations: Present Monitor Decelerations: Absent Monitor Variability: Moderate Assessment and Plan Assessment: active labor Plan: continuous present management Comments: 26 year old at 40 weeks and 2 days. She is now complete and zero station with a strong urge to push. Several trial pushes done with slow descent. Will have her labor down to encourage passive descent of the head prior to actively pushing again.
--- NOTE | 2022-01-18 16:50 | PM.OBPNLAB ---
Date/Time Date Patient Seen: 01/18/22 Time Patient Seen: 16:35 Pain Control Pain control: tolerating well and epidural Pelvic Exam Dilation (cm): 10 Effacement (%): 100 station: +1 Amniotic membrane status: Ruptured (clear) Contractions Pitocin rate (mU/min): 5 Contraction frequency (min): 2 Contraction pattern: Regular Status status: Category l Heart Rate Baseline: 130 Monitor Accelerations: Present Monitor Decelerations: Early Monitor Variability: Moderate Assessment and Plan Assessment: active labor Comments: 26 year old at 40 weeks and 2 days gestation. She labored down for two hours due to inadequate pain control. Once epidural was redosed she began pushing at 3 pm. There has been minimal descent despite pushing and pitocin augmentation. Dr. Mcintosh consulted for vacuum vs primary . Dr. Rodríguez also consulted for possible forceps. Dr. Rodríguez performed bedside US confirming OP position. Given high station and suspected macrosomia, assisted vaginal delivery not recommended. Discussed primary with the patient and her . Risk of bleeding, infection, injury to surrounding organs reviewed with the patient and her and all questions answered. Consent signed. Will give cefazolin 2 g and azithromycin 500 mg prior to surgery.
--- NOTE | 2022-01-18 17:43 | PM.PREOP ---
Pre-operative Note COVID-19 COVID-19 status: Negative Result date/Date tested (Pos, Neg/Pending): 01/17/22 Criteria for continued procedure: Deterioration of the patient's condition or overall health Interval Note History & Physical reviewed/Exam performed by Physician: Yes Changes to H&P: No
--- NOTE | 2022-01-18 18:54 | SUR.OPER ---
Supine on Padded OR bed, head on pillow, safety belt at thigh, arms secured on padded arm boards at <90 degrees abduction. Bump under right buttock. Legs uncrossed with pillow under knees, gel pad to heels, tape over blanket to lower legs.
[2022-01-18] MEDS: CEFAZOLIN 1 GM VIAL 2 GM IV (19:23)
[2022-01-18] MEDS: AZITHROMYCIN 500 MG in DEXTROSE 5% IN WATER 250 ML IV (19:25)
--- NOTE | 2022-01-18 19:45 | SUR.OPER ---
Viable baby girl delivered at 1940. Intact placenta delivered and sent with cord blood to L&D with the baby
[2022-01-18 20:37] VITALS: BP 142/93; PULSE 104; RESP 20; TEMP 37.7; O2SAT 99
[2022-01-18 20:42] VITALS: BP 154/92; PULSE 100; RESP 11; O2SAT 99
[2022-01-18 20:47] VITALS: BP 155/95; PULSE 98; RESP 16; O2SAT 99
--- NOTE | 2022-01-18 20:52 | P.OP_ITS ---
Operative Date/Time/Diagnoses Date of procedure: 01/18/22 Time of procedure: 19:45 Pre-op diagnosis: Stage 2 arrest 40 weeks gestation Post-op diagnosis: same Procedure & Clinicians Procedure: Primary low transverse section Same procedure as scheduled: Yes Indications: Stage 2 arrest 40 weeks of Surgeon: Tatianna Hoffman Waistline Joiner Lockstitch: Carli Mcintosh Reason for Waistline Joiner Lockstitch: Dr. Mcintosh was essential for timely delivery of the and retraction. Dr. Mcintosh scrubbed out to assist with infant. Dr. Rodríguez scrubbed in to assist the case for retraction and suturing. Operative Notes Findings: Viable female infant, normal uterus with a posterior external fibroid, normal tubes and ovaries. Closure Type: primary Specimen(s): cord blood Intraoperative meds administered: Duramorph, Ketorolac and Pitocin Applied: Catheter Estimated Blood Loss (mL): 450 Procedure in detail: The patient was taken to the operating room and transferred to the operating table where she was placed in the dorsal supine position with a leftward tilt. SCDs applied. She was prepped and draped in the usual sterile fashion. A timeout was performed. Epidural analgesia was inadequate so epidural bolused. After waiting several minutes epidural was still inadequate so the decision was made to proceed with general anesthesia. Given the need for rapid delivery, Dr. Mcintosh took over as primary and made the skin incision 2 finger breadths above the pubic symphysis. The fascia was nicked in the midline and dissected bluntly laterally by Dr. Mcintosh and Dr. Hoffman. The superior aspect of the fascial inci celeste was grasped with a Nimco clamps, elevated, and the underlying rectus muscles dissected off bluntly. Attention was then turned to the inferior aspect of this incision which in a similar fashion was grasped with a Nimco clamps, elevated, and the underlying rectus muscles dissected off bluntly. The rectus muscles were in the midline. The peritoneum was entered and dissected bluntly laterally by Dr. Hoffman and Dr. Mcintosh. After entering the peritoneum there was good visualization of the bladder. The bladder blade was inserted. The vesicouterine peritoneum was identified, grasped with the pickup, and entered sharply with the Metzenbaum scissors. This incision was extended bilaterally, and the bladder flap was created digitally. The bladder blade was reinserted. The lower uterine segment was incised in a transverse fashion with the scalpel. Upon entering the amniotic sac there was a small amount of meconium stained fluid. The 's head was delivered by Dr. Mcintosh. The remainder of the body delivered without difficulty. The cord was double clamped and cut. The was handed off to waiting RN and RT. At this time Dr. Mcintosh scrubbed out to assist with the and Dr. Rodríguez scrubbed in. The placenta was delivered with gentle traction by Dr. Hoffman. The uterus was cleared of all clots and debris. The uterine incision was repaired with #1 aircraft instrument repairer los in a running interlocking fashion and a second layer the same suture was used for an imbricating layer. Hemostasis was achieved. The tubes and ovaries were examined and were found to be normal. There was a small fibroid on the posterior side of the uterus. The gutters were cleared of all clots and debris. The peritoneum was closed using 2-0 Vicryl in a running fashion. The fascia was reapproximated using 0 Vicryl in a running fashion. Subcutaneous layer was copiously irrigated with warm normal saline. 3 simple interrupted sutures of 3- 0 Vicryl were placed to reapproximate the subcutaneous layer. The skin was closed with 4-0 monocryl in a subcuticular fashion. Steri-Strips were placed. An Aquacel dressing was placed. The uterus was expressed of a small amount of old blood. Sponge, lap, and instrument counts were correct. The patient tolerated the procedure well, and was taken to PACU in stable condition. [place] Baby 1: Gender: Female Presentation: vertex Position: Occiput Posterior Placental Delivery Description: Expressed Cord Vessel Description: 3 Vessels score (1 min): 4 score (5 min): 7 score (10 min): 9 weight: 7 lb 11.917 oz Narrative: Infant required brief CPAP after delivery and transitioned well off CPAP before 5 minutes of life. Post-operative Condition: stable Disposition: PACU Aftercare: routine postop
[2022-01-19] MEDS: LACTATED RINGERS 1,000 ML 100 ML IV (00:23)
[2022-01-19] MEDS: KETOROLAC 30 MG/ML VIAL IV ×3 (02:04→14:22)
[2022-01-19 06:08] LABS: Hematocrit 27.8 % (36-46); Hemoglobin 9.3 g/dL (12.0-16.0)
[2022-01-19 07:00] VITALS: BP 138/82; PULSE 98; RESP 16; TEMP 36.4
[2022-01-19] MEDS: PRENATAL VIT,CALC/IRON/FOLIC 1 TABLET 1 TAB PO (09:10)
[2022-01-19] MEDS: DOCUSATE 100 MG CAPSULE 200 MG PO (09:11)
--- NOTE | 2022-01-19 11:34 | PM.OBPN.1 ---
Subjective - OB Subjective Narrative: Patient reports feeling well this morning. She has not used any oxycodone for pain yet and denies pain. She has stood at the side of the bed but not yet ambulated. Catheter removed this morning. She did have some mildly elevated blood pressures overnight but denies headache, vision changes or right upper quadrant abdominal pain. Infant is doing well and they have a good start to . Vaginal bleeding is light. Date Patient Seen: 01/19/22 Time Patient Seen: 11:15 Exam Vital Signs (past 8 hours): Oxygen Delivery Method Room Air Blood pressure 140/78 heart rate 84 respirations 16 temperature 97.7? General: Awake and alert, no acute distress. HEENT: NCAT, EOMI, moist oral mucosa CV: Regular rate and rhythm, no murmurs, rubs or gallops Lungs: CTAB, no wheezes, rales, or rhonchi Abdomen: Aquacel dressing intact without drainage. Soft, nontender; bowel tones active; uterus firm 1 cm below umbilicus Extremities: Warm, 1+ edema bilaterally, 2+ pedal pulses bilaterally Objective Labs Result Diagrams: 01/19/22 06:00 Labs: Laboratory Results - last 24 hr 01/19/22 06:00 Hgb 9.3 L Hct 27.8 L Assessment & Plan Assessment and Plan (1) 40 weeks gestation of : Status: Acute (2) S/P section: Status: Acute (3) Arrest of descent, delivered, current hospitalization: Status: Acute Plan day: 1 plan OB: routine care Comments: 26-year-old G3 now P1 after primary section for arrest of descent. She is doing very well this morning. Encouraged ambulation. She did have several mildly elevated blood pressures overnight though denies symptoms of preeclampsia. Will check preeclampsia labs. Urinary catheter was removed this morning but nursing is going to check if the urine bag was actually emptied. We may be able to run a catheter specimen for urine protein creatinine. Anticipate discharge home tomorrow if doing well. Time Spent With Patient Time: Total time spent is greater than 50% in coordination of care (as documented) at patient's floor/unit and/or counseling patient: Time with patient: less than 15 minutes
[2022-01-19 13:17] LABS: Add Manual Diff / Slide Review NO; Basophils Absolute Auto 0 /uL (0-100); Basophils Percent Auto 0.3 % (0-2); Eosinophils Absolute Auto 0 /uL (0-450); Eosinophils Percent Auto 0.1 % (2-4); Hematocrit 25.4 % (36-46); Hemoglobin 8.6 g/dL (12.0-16.0); Lymphocytes Absolute Auto 1700 /uL (1100-4500); Lymphocytes Percent Auto 12.6 % (25-40); Mean Corpuscular HGB Conc 33.8 % (30-36); Mean Corpuscular Hemoglobin 33.9 PG (26-34); Mean Corpuscular Volume 100.2 fL (80-100); Monocytes Absolute Auto 1000 /uL (0-900); Monocytes Percent Auto 7.2 % (3-14); Neutrophils Absolute Auto 10700 /uL (1500-7000); Neutrophils Percent Auto 79.8 % (50-75); Platelet Count 201 X10^3/uL (150-400); Red Blood Cell Count 2.54 X10^6/uL (4.0-5.2); Red Cell Distribution Width 15.6 % (11.6-14.8); White Blood Cell Count 13.4 X10^3/uL (4.5-11.0)
[2022-01-19] MEDS: FERROUS SULFATE 325 MG TABLET PO (14:34)
[2022-01-19 15:02] LABS: Alanine Aminotransferase 13 IU/L (<35); Albumin 2.9 g/dL (3.5-5.0); Albumin Globulin Ratio 1.1 (1.0-2.8); Alkaline Phosphatase 89 U/L (38-126); Aspartate Aminotransferase 27 IU/L (14-36); BUN Creatinine Ratio 14.5 (6-22); Bilirubin Total 0.7 mg/dL (0.2-1.3); Blood Urea Nitrogen 10 mg/dL (7-17); Calcium 8.6 mg/dL (8.4-10.2); Carbon Dioxide 25 mmol/L (22-32); Chloride 104 mmol/L (98-107); Estimated Glomerular Filt Rate > 60.0 mL/min (>60); Globulin 2.6 g/dL (1.7-4.1); Glucose 82 mg/dL (70-100); HEMOLYSIS < 15 (0-50); Potassium 3.7 mmol/L (3.4-5.1); Sodium 132 mmol/L (137-145); Total Protein 5.5 g/dL (6.3-8.2)
[2022-01-19 16:00] VITALS: BP 138/82; PULSE 98; RESP 16; TEMP 36.4
[2022-01-19] MEDS: LANOLIN OINT 7 GM 1 APPLIC TOP (20:15)
[2022-01-19] MEDS: IBUPROFEN 600 MG TABLET PO (22:38)
[2022-01-20] MEDS: IBUPROFEN 600 MG TABLET PO ×2 (04:36→10:27)
--- NOTE | 2022-01-20 08:22 | PM.OBDS.1 ---
Discharge Providers Provider Date of admission: 01/17/22 21:11 Discharge Date: 01/20/22 Primary care physician: Tatianna Hoffman DO Consults: 01/18/22 23:09 Consult to [facility] Residential Routine Comment: Discharge provider: Tatianna Hoffman DO Summary Hospital Course Date Patient Seen: 01/20/22 Time Patient Seen: 09:00 Diagnoses: 40 weeks of Stage II arrest of labor Status post primary Acute blood loss anemia Hospital Course: 26-year-old G3 now P1 after primary for arrest of descent. Patient came in for elective induction for suspected macrosomia. She progressed after a single dose of Cytotec. She went on to receive an epidural and progressed to complete. Unfortunately after several hours of pushing there was no descent the decision made for primary section. Epidural was inadequate at the time of the surgery so she was placed under general anesthesia. Infant required a brief period of CPAP but ultimately did well. course has been uncomplicated. She did have some mildly elevated blood pressures in the first 24 hours . CBC was notable for anemia however platelets were normal as were liver enzymes on CMP. She was started on iron for acute blood loss anemia. Pain controlled with ibuprofen only and vaginal bleeding decreasing. She is ambulating, voiding and passing flatus. Tolerating a diet. is going well without issues in the . Advised patient to call for fevers, severe pain or bleeding through more than a pad an hour. She will follow-up in clinic in a week for Aquacel dressing removal. Peripartum Data Delivery Method: Section complications: none 1: Gender: Female Disposition of : home Discharge Diagnosis (1) 40 weeks gestation of : Status: Acute (2) S/P section: Status: Acute (3) Arrest of descent, delivered, current hospitalization: Status: Acute Status at Discharge Cognitive/behavioral status at discharge: at baseline, oriented Functional status at discharge: independent ambulation Overall status at discharge: patient is progressing back to baseline Time Spent with Patient Time attestation: Total time spent providing and/or coordinating discharge services: Time spent: Less than 30 minutes Objective Labs Result Diagrams: 01/19/22 13:05 01/19/22 13:05 Labs: Laboratory Results - last 24 hr 01/19/22 01/19/22 13:05 13:05 WBC 13.4 H D RBC 2.54 L Hgb 8.6 L Hct 25.4 L MCV 100.2 H MCH 33.9 MCHC 33.8 RDW 15.6 H Plt Count 201 Neut % (Auto) 79.8 H Lymph % (Auto) 12.6 L [place] % (Auto) 7.2 Eos % (Auto) 0.1 L Baso % (Auto) 0.3 Neut # (Auto) 94130 H Lymph # (Auto) 1700 [place] # (Auto) 1000 H Eos # (Auto) 0 Baso # (Auto) 0 Sodium 132 L Potassium 3.7 Chloride 104 Carbon Dioxide 25 BUN 10 Creatinine 0.69 Estimated GFR > 60.0 BUN/Creatinine Ratio 14.5 Glucose 82 Calcium 8.6 Total Bilirubin 0.7 AST 27 ALT 13 Alkaline Phosphatase 89 Total Protein 5.5 L Albumin 2.9 L Globulin 2.6 Albumin/Globulin Ratio 1.1 Exam Vital Signs (past 8 hours): Oxygen Delivery Method Room Air Temperature 97.9? blood pressure 140/73 heart rate 75 respirations 16 Narrative Exam Narrative: General: Awake and alert, no acute distress. HEENT: NCAT, EOMI, moist oral mucosa CV: Regular rate and rhythm, no murmurs, rubs or gallops Lungs: CTAB, no wheezes, rales, or rhonchi Abdomen: Aquacel dressing intact without drainage. Soft, nontender; bowel tones active; uterus firm 1 cm below umbilicus Extremities: Warm, 1+ edema bilaterally, 2+ pedal pulses bilaterally Discharge Plan Discharge Plan Patient Disposition: Home Discharge orders & Medications Prescriptions: New docusate sodium 100 mg Capsule 200 mg PO DAILY Qty: 30 0RF ibuprofen 600 mg Tablet 600 mg PO Q6H PRN (Reason: Fever/Mild Pain (1-3)) Qty: 30 0RF oxycodone 5 mg Tablet 5 mg PO Q4H PRN (Reason: Pain, Moderate (4-6)) Qty: 10 0RF Continued (DME) Portable Nebulizer System Device See Rx Instructions .ROUTE .MEDSUPPLY Qty: 1 0RF Rx Instructions: Use up to 4 times daily as needed for SOB/wheezing triamcinolone acetonide 0.1 % cream 1 applic TOP BID Qty: 30 0RF Rx Instructions: use BID for one week or until clear albuterol sulfate 2.5 mg /3 mL (0.083 %) solution for nebulization 2.5 mg INHALATION Q6H PRN (Reason: shortness of breath or wheezing) Qty: 90 0RF (DME) Nebulizer tubing Qty: 1 0RF Rx Instructions: As directed (DME) Nebulizer Canister for medication Qty: 1 0RF Rx Instructions: As directed albuterol sulfate 90 mcg/actuation HFA aerosol inhaler See Rx Instructions .ROUTE .COMPLEX Qty: 17 11RF Dose Instruction: inhale 2 puffs by mouth every 4 to 6 hours if needed shortness of breath or wheezing Rx Instructions: inhale 2 puffs by mouth every 4 to 6 hours if needed shortness of breath or wheezing prenat.vits,ynes,[id number] Tablet 1 tab PO DAILY 0RF Zyrtec 10 mg capsule 10 mg PO DAILY PRN (Reason: Allergy Symptoms) 0RF Follow up/Referrals: Tatianna Hoffman DO [Primary Care Provider] - 01/24/22 9:15 am (Appointment with on Monday, January at 9:15 am for aquacel removal.) Visit Report/Discharge Packet Instructions: DI for Visit Report Forms: Patient Portal/API, Stroke Signs & Symptoms Discharge Data Primary Care Provider: Tatianna Hoffman Discharges patient from system. Discharge Date/Time: 01/20/22 11:08
[2022-01-20] MEDS: ACETAMINOPHEN 325 MG TABLET 650 MG PO (08:59)
[2022-01-20] MEDS: FERROUS SULFATE 325 MG TABLET PO (08:59)
[2022-01-20] MEDS: DOCUSATE 100 MG CAPSULE 200 MG PO (08:59)
[2022-01-20] MEDS: PRENATAL VIT,CALC/IRON/FOLIC 1 TABLET 1 TAB PO (08:59)
[2022-01-20] MEDS: MEASLES,MUMPS,RUBELLA VACC/PF 0.5 ML VIAL SUBCUT (10:25)
== END 2022-01-20 11:08 | disposition home or self-care (01) | DRG 540 ==
PROVIDERS: Admitting Provider Family Medicine; Family Provider Family Medicine; PCP Family Medicine; Referring Provider Family Medicine; Visit Provider Family Medicine
PROC: 10D00Z1 Extraction of Products of Conception, Low, Open Approach (ICD-10-PCS; CPT 59514; principal; 2022-01-18 19:00)
DX: O62.1 Secondary uterine inertia (principal); D62 Acute posthemorrhagic anemia; O99.02 Anemia complicating childbirth; O99.324 Drug use complicating childbirth; F12.90 Cannabis use, unspecified, uncomplicated; O77.0 Labor and delivery complicated by meconium in amniotic fluid; Z3A.40 40 weeks gestation of pregnancy; Z37.0 Single live birth; D25.9 Leiomyoma of uterus, unspecified; O48.0 Post-term pregnancy; O36.63X0 Maternal care for excessive fetal growth, third trimester, not applicable or unspecified; Z20.822 Contact with and (suspected) exposure to COVID-19
CPT/HCPCS: 01967; 01968; 36415; 59025; 59050; 59200; 59514; 80053; 85014; 85018; 85025; 86850; 86900; 86901; 87635; C9803; G0378; G0379; J0690; J1100; J1885; J2250; J2274; J2405; J2540; J2590; J2704; J2765; J3010